=== PATIENT | male | born 1990 | race African-American/Black ===

== ENCOUNTER 2018-07-15 09:00 | Emergency (ER) | payer OTHER ==
[~2018-07-15] VITALS: Ht 188 cm; Wt 83.9 kg
[2018-07-15 09:05] VITALS: BP 130/86
[2018-07-15] MEDS ORDERED: DEXAMETHASONE SOD PHOS 10MG/1ML VIAL INJ IM ONE (10:45)
[2018-07-15] MEDS ORDERED: KETOROLAC TROMETH 60MG/2ML VIAL IM ONE (10:45)
== END 2018-07-15 11:00 | disposition home or self-care (01) ==
LOC: ER 09:00
DX: S46.911A Strain of unspecified muscle, fascia and tendon at shoulder and upper arm level, right arm, initial encounter (principal); X50.9XXA Other and unspecified overexertion or strenuous movements or postures, initial encounter; Y93.89 Activity, other specified; Y99.8 Other external cause status; Y92.89 Other specified places as the place of occurrence of the external cause
CPT/HCPCS: 73030; 99283; J1100; J1885

== ENCOUNTER 2022-01-29 10:46 | Emergency (ER) | payer OTHER ==
[~2022-01-29] VITALS: Ht 188 cm; Wt 84.8 kg
[2022-01-29] MEDS ORDERED: LORazepam 2MG/ML-1ML VIAL IV ONE (11:30)
[2022-01-29] MEDS ORDERED: SODIUM CHLORIDE 0.9% 1,000 ML IV ONE (11:30)
[2022-01-29 12:05] LABS: Basophils # (auto) 0.1 10 ^3/uL (0-0.2); Basophils % (auto) 1.1 % (0.0-2.0); Eosinophils # (auto) 0.1 10 ^3/uL (0-0.8); Eosinophils % (auto) 1.6 % (0.0-7.0); Hematocrit 50.3 % (41.0-53.0); Lymphocytes # (auto) 2.9 10 ^3/uL (0.4-5.4); Lymphocytes % (auto) 40.2 % (10.0-50.0); Mean Corpuscular Hemoglobin 31.6 pg (28.0-32.0); Mean Corpuscular Hgb Conc. 33.7 g/dL (32.0-36.0); Mean Corpuscular Volume 93.6 fL (80.0-100.0); Monocytes # (auto) 0.6 10 ^3/uL (0-1.3); Monocytes % (auto) 8.1 % (0.0-12.0); Neutrophils # (auto) 3.6 10 ^3/uL (1.6-8.6); Nucleated Red Blood Cells % 0.1 %; Red Blood Cells 5.38 10^6/uL (4.5-5.90); Red Cell Distribution Width 13.4 % (11.8-14.3); White Blood Cell 7.2 10^3/uL (4.4-10.8)
[2022-01-29 12:29] LABS: Albumin 4.5 g/dL (3.4-5.0); Calcium 8.8 mg/dL (8.5-10.1); Potassium 3.8 mmol/L (3.5-5.1)
[2022-01-29 12:32] LABS: BUN/Creatinine Ratio 11.1; Bilirubin, Total 1.1 mg/dL (0.2-1.0); Total Protein 8.9 g/dL (6.4-8.2)
[2022-01-29 17:20] VITALS: BP 132/73
== END 2022-01-29 17:24 | disposition home or self-care (01) ==
LOC: ER 10:46
DX: F10.10 Alcohol abuse, uncomplicated (principal); F17.210 Nicotine dependence, cigarettes, uncomplicated; Y90.6 Blood alcohol level of 120-199 mg/100 ml
CPT/HCPCS: 36415; 80053; 80320; 85025; 96361; 96374; 99283; J2060; J7030

== ENCOUNTER 2022-02-17 08:49 | Emergency (ER) | payer OTHER ==
[~2022-02-17] VITALS: Ht 188 cm; Wt 82.0 kg
[2022-02-17] MEDS ORDERED: LORazepam 2MG/ML-1ML VIAL IV ONE (10:45)
[2022-02-17] MEDS ORDERED: SODIUM CHLORIDE 0.9% 1,000 ML IVB ONE (10:45)
[2022-02-17 11:09] LABS: Basophils # (auto) 0.1 10 ^3/uL (0-0.2); Basophils % (auto) 1.2 % (0.0-2.0); Eosinophils # (auto) 0.1 10 ^3/uL (0-0.8); Eosinophils % (auto) 1.1 % (0.0-7.0); Hematocrit 46.8 % (41.0-53.0); Hemoglobin 15.6 g/dL (13.5-17.5); Lymphocytes # (auto) 2.4 10 ^3/uL (0.4-5.4); Lymphocytes % (auto) 29.9 % (10.0-50.0); Mean Corpuscular Hemoglobin 31.3 pg (28.0-32.0); Mean Corpuscular Hgb Conc. 33.4 g/dL (32.0-36.0); Mean Corpuscular Volume 93.9 fL (80.0-100.0); Monocytes # (auto) 0.7 10 ^3/uL (0-1.3); Monocytes % (auto) 9.4 % (0.0-12.0); Neutrophils # (auto) 4.6 10 ^3/uL (1.6-8.6); Neutrophils % (auto) 58.4 % (37.0-80.0); Nucleated Red Blood Cells % 0.1 %; Red Blood Cells 4.98 10^6/uL (4.5-5.90)
[2022-02-17 11:21] LABS: Albumin 4.2 g/dL (3.4-5.0); BUN/Creatinine Ratio 11.4; Calcium 8.6 mg/dL (8.5-10.1); Magnesium 1.9 mg/dL (1.6-2.6); Potassium 4.3 mmol/L (3.5-5.1)
[2022-02-17 11:43] LABS: Bilirubin, Total 1.3 mg/dL (0.2-1.0); Total Protein 7.9 g/dL (6.4-8.2)
[2022-02-17] MEDS ORDERED: FOLIC ACID 1 MG, MULTIPLE VITAMIN 10 ML, MAGNESIUM SULF SDV 50% 8 MEQ, THIAMINE INJ 100... INJ SCH ×5 (12:00)
[2022-02-17] MEDS ORDERED: diazePAM 5 MG TAB PO ONE (12:15)
[2022-02-17 13:07] LABS: Urine Bacteria FEW /hpf (None Seen); Urine Blood TRACE /uL (Negative); Urine Mucus FEW (None Seen); Urine Specific Gravity 1.032 (1.001-1.035); Urine WBC 1 /hpf (0 - 3)
[2022-02-17 13:10] VITALS: BP 127/69
== END 2022-02-17 16:37 | disposition home or self-care (01) ==
LOC: ER 08:49
DX: F10.239 Alcohol dependence with withdrawal, unspecified (principal); F41.9 Anxiety disorder, unspecified; F17.210 Nicotine dependence, cigarettes, uncomplicated; F12.10 Cannabis abuse, uncomplicated; R94.31 Abnormal electrocardiogram [ECG] [EKG]; Y90.8 Blood alcohol level of 240 mg/100 ml or more
CPT/HCPCS: 36415; 80053; 81001; 83690; 83735; 85025; 93005; 96361; 96365; 96366; 99285; J3411; J3475; J7030

== ENCOUNTER 2022-03-19 12:38 | Emergency (ER) | payer OTHER ==
[~2022-03-19] VITALS: Ht 188 cm; Wt 75.4 kg
[2022-03-19] MEDS ORDERED: PROCHLORPERAZINE EDISYLATE 5 MG/ML 2ML VIAL IV ONE (15:30)
[2022-03-19] MEDS ORDERED: SODIUM CHLORIDE 0.9% 1,000 ML IV ONE (15:30)
[2022-03-19] MEDS ORDERED: ONDA-144 PO (16:36)
[2022-03-19] MEDS ORDERED: CHL10C PO (16:36)
[2022-03-19] MEDS ORDERED: LORazepam 2MG/ML-1ML VIAL IV ONE (17:15)
[2022-03-19 17:45] LABS: Basophils # (auto) 0.1 10 ^3/uL (0-0.2); Eosinophils # (auto) 0.1 10 ^3/uL (0-0.8); Hemoglobin 17.6 g/dL (13.5-17.5); Monocytes # (auto) 0.9 10 ^3/uL (0-1.3); Neutrophils # (auto) 4.7 10 ^3/uL (1.6-8.6); Nucleated Red Blood Cells % 0.1 %
[2022-03-19 17:48] LABS: Eosinophils % (auto) 1.3 % (0.0-7.0); Lymphocytes # (auto) 2.5 10 ^3/uL (0.4-5.4); Lymphocytes % (auto) 29.8 % (10.0-50.0); Mean Corpuscular Hemoglobin 31.6 pg (28.0-32.0); Mean Corpuscular Hgb Conc. 33.3 g/dL (32.0-36.0); Mean Corpuscular Volume 94.8 fL (80.0-100.0); Monocytes % (auto) 10.9 % (0.0-12.0); Red Blood Cells 5.58 10^6/uL (4.5-5.90); Red Cell Distribution Width 13.9 % (11.8-14.3); White Blood Cell 8.3 10^3/uL (4.4-10.8)
[2022-03-19 18:05] VITALS: BP 135/76
[2022-03-19 18:23] LABS: Albumin 4.4 g/dL (3.4-5.0); BUN/Creatinine Ratio 9.7; Calcium 9.2 mg/dL (8.5-10.1); Potassium 4.3 mmol/L (3.5-5.1)
[2022-03-19 18:26] LABS: Bilirubin, Total 1.5 mg/dL (0.2-1.0); Total Protein 8.4 g/dL (6.4-8.2)
== END 2022-03-19 18:44 | disposition home or self-care (01) ==
LOC: ER 12:38
DX: F10.239 Alcohol dependence with withdrawal, unspecified (principal); F10.229 Alcohol dependence with intoxication, unspecified; F17.210 Nicotine dependence, cigarettes, uncomplicated; F12.10 Cannabis abuse, uncomplicated; Y90.8 Blood alcohol level of 240 mg/100 ml or more
CPT/HCPCS: 36415; 80053; 80320; 85025; 96361; 96374; 96375; 99284; J0780; J2060; J7030